=== PATIENT | male | born 1970 | race Two or more races ===

== ENCOUNTER 2024-01-13 11:17 | Emergency (ER) | payer MEDICAID, SELFPAY ==
[2024-01-13 11:19] VITALS: BMI 47.3
[2024-01-13 11:23] VITALS: BP 174/85; PULSE 85; RESP 19; TEMP 36.8; O2SAT 98
--- NOTE | 2024-01-13 11:49 | XR_ITS ---
Examination: Duplex scan of the lower extremity, unilateral right complete Date and time of exam: 24 1221 hrs. Indications: Right leg and calf pain and swelling and redness today, diagnosis atrial fibrillation Technique: Duplex scan of the extremity veins using B-mode/grayscale imaging and Doppler spectral analysis and color flow Attention is directed to internal echogenicity, compression and augmentation involving these veins, color flow assessment, spectral analysis Findings: Major deep venous structures in the extremity demonstrate normal course and caliber. There is no evidence of deep vein thrombosis. Normal color flow and spectral analysis Impression: Negative for DVT..
--- NOTE | 2024-01-13 11:51 | EDNOTE_ITS ---
ED Extremity Problem RME/HPI General Chief complaint: Extremity Problem,Nontraumatic Stated complaint: RIGHT CALF REDNESS AND PAIN, HX OF AFIB Time Seen by Provider: 01/13/24 11:28 Arrival date/time: 01/13/24 11:17 RME / HPI RME / HPI Narrative: 53-year-old male patient with significant history of A-fib, on Eliquis 5 mg twice daily, came in for evaluation regarding right lower leg swelling. Onset of symptoms since yesterday as worsening right lower leg swelling and redness and tenderness. Severity of symptoms moderate. Patient denies any fever denies any chest pain denies any headache. Denies any other complaints no medication was taken prior to arrival Related Data Home Medications ?Medication ?Instructions ?Recorded ?Confirmed amlodipine 10 mg tablet 10 mg PO QDAY 03/25/22 03/25/22 clonidine HCl 0.1 mg tablet 0.1 mg PO BID 03/25/22 03/25/22 lisinopril 40 mg tablet 40 mg PO QDAY 03/25/22 03/25/22 omeprazole 20 mg capsule,delayed 20 mg PO QDAY 03/25/22 03/25/22 release Previous Rx's ?Medication ?Instructions ?Recorded pantoprazole 40 mg tablet,delayed 40 mg PO QDAY #14 tabs 08/06/19 release (Protonix) diltiazem HCl 30 mg tablet 30 mg PO TID #90 tabs 03/26/22 diltiazem HCl 60 mg tablet 60 mg PO TID #30 tabs 04/06/22 diltiazem HCl 240 mg 240 mg PO QAM #30 caps 04/13/22 capsule,extended release 24 hr (Cardizem CD) metoprolol succinate 50 mg 50 mg PO BID #30 tabs 04/13/22 tablet,extended release 24 hr apixaban 5 mg tablet (Eliquis) 5 mg PO BID #60 tabs 06/22/22 doxycycline monohydrate 100 mg 100 mg PO BID #14 caps 01/13/24 capsule Allergies Allergy/AdvReac Type Severity Reaction Status Date / Time No Known Allergies Allergy Verified 01/13/24 11:21 Review of Systems Review of Systems Narrative Review of Systems: Review of system reviewed and within normal limits except mentioned in HPI ED Exam Narrative Physical exam: VITAL SIGNS: Reviewed. GENERAL APPEARANCE: Alert and interactive, follows commands, no acute distress, HEAD AND FACE: Non-traumatic. ENT: PERRL, pink conjunctivitis, eyelid no trauma, Mucous membrane moist. NECK: Supple, nontender, no nuchal rigidity. CHEST: No tenderness, no crepitus, no paradoxical movement, no retractions. LUNGS: Clear, well ventilated, symmetric, no rales, no wheezing, no ronchi, no stridor, good breath sounds bilaterally. HEART: Regular rate, regular rhythm, no murmur, no gallops. ABDOMEN: Soft, positive bowel sounds, nondistended, no guarding, nontender, no rebound, no masses, RECTAL: Deferred. GENITAL: Deferred. NEUROLOGICAL: Gross motor function intact sensory function intact, Appropriate for age. MUSCULOSKELETAL: low back nontender, full range of motion. EXTREMITIES: Right lower leg swelling, tenderness, full range of motion. No skin breakdown noted SKIN: Color pink, dry, no rash, no lacerations, no abrasions, no contusions. LYMPHATICS: Deferred. Course Quality Measures none Orders Category Date Time Status EKG (ED ONLY) *Do not use* NOW Care 01/13/24 11:53 Completed EKG (ED Only) Stat Exams 01/13/24 11:52 Draft US venous doppler LE RT Stat Exams 01/13/24 11:49 Taken BNP [B-Type Natriuretic Peptide] Stat Lab 01/13/24 12:09 Completed CBC [CBC] Stat Lab 01/13/24 12:09 Completed CMP [Comprehensive Metabolic Panel] Stat Lab 01/13/24 12:09 Completed PT [Prothrombin Time with INR] Stat Lab 01/13/24 12:09 Completed PTT [Partial Thromboplastin Time] Stat Lab 01/13/24 12:09 Completed Troponin I Stat Lab 01/13/24 12:09 Completed Doxycycline [Vibramycin] Med 01/13/24 13:10 Discontinued 100 mg PO X1 ONE Vital Signs Vital signs: Vital Signs Temperature 98.2 F 01/13/24 11:23 Pulse Rate 85 01/13/24 11:23 Respiratory Rate 19 01/13/24 11:23 Blood Pressure 174/85 H 01/13/24 11:23 Pulse Oximetry (%) 98 01/13/24 11:23 Oxygen Delivery Method Room Air 01/13/24 11:23 Extremity Problem MDM Narrative MDM Narrative:: Laboratory couple back unremarkable. Ultrasound of the lower extremities negat johnny for DVT. Patient is having cellulitis, severity mild. Patient will be given doxycycline in the ED. Patient stable for discharge Patient data External records reviewed:: None Clinical information provided by:: none Social determinants that could affect healthcare access:: none Patient has the following chronic illnesses:: Chronic A-fib, hypertension How is presenting disease/condition affected by chronic disease/condition?: exacerbated by Evaluation data The following diagnostics were reviewed and interpreted by me:: lab results and radiology exam(s) Lab and/or radiology exams considered but not ordered:: None Interpretation Summary: Laboratory all came back unremarkable no leukocytosis ultrasound is negative for DVT Medications / Prescriptions Medications or Prescriptions considered but not ordered:: None Medication administrations:: Medication Administration History Discontinued Medications Doxycycline Hyclate (Doxycycline 100 Mg Tablet) 100 mg PO X1 ONE Stop: 01/13/24 13:11 Last Admin: 01/13/24 13:16 Dose: 100 mg Documented By: ERIBERTO Doxycycline Consultations Consultation(s) initiated? (list below): No Diagnosis Extremity Problem Differential Diagnosis: cellulitis, superficial thrombophlebitis and deep vein thrombosis of lower extremity Most likely diagnosis given after review of the tests above:: Cellulitis lower leg Admission Indicated Admission indicated?: not indicated Explain why admission is indicated or not indicated:: Stable for discharge Admission Request Was there a request for admission?: No Disposition Plan Disposition Plan: Discharge Discharge Attestation Discharge Attestation: The patient was given an opportunity to ask questions and understood the discharge instructions. Discharge instructions specifically effects, indications for sooner follow up or return to the emergency department, and the expected course of current diagnosis. Patient condition: Stable Discharge Plan Plan Patient Disposition: HOME (Self Care) Disposition Comment: stable Prescriptions/Referrals Prescriptions/Med Rec: New doxycycline monohydrate 100 mg capsule 100 mg PO BID Qty: 14 0RF No Action Eliquis 5 mg tablet 5 mg PO BID Qty: 60 4RF pantoprazole [Protonix] 40 mg tablet,delayed release (DR/EC) 40 mg PO QDAY Qty: 14 0RF diltiazem HCl 60 mg tablet 60 mg PO TID Qty: 30 1RF diltiazem HCl [Cardizem CD] 240 mg capsule,extended release 24hr 240 mg PO QAM Qty: 30 0RF metoprolol succinate 50 mg tablet extended release 24 hr 50 mg PO BID Qty: 30 1RF clonidine HCl 0.1 mg Tablet 0.1 mg PO BID amlodipine 10 mg Tablet 10 mg PO QDAY omeprazole 20 mg Capsule,Delayed Release(Dr/Ec) 20 mg PO QDAY lisinopril 40 mg Tablet 40 mg PO QDAY diltiazem HCl 30 mg tablet 30 mg PO TID Qty: 90 2RF Referrals: Clinton VELASQUEZ)Chely FNP [Primary Care Provider] - In 1 week Problem List Clinical Impression: Cellulitis Patient/Caregiver Discharge Instructions Discharge Activity: activity as tolerated Education Materials: ED Cellulitis Additional Instructions: Thank you for the opportunity for serving you today. You are stable for discharged . You are advised to: Follow-up with your PCP in 1 to 2 days Return to ED for worsening of symptoms Increase oral fluids Take medication as prescribed Elevate legs as needed Print Language: Slovenian Stand Alone Forms: Judi Award Info., Patient Portal Info Letter ONOFRE/WALT Supervising Physician EARL Supervising Physician: MD Summer
--- NOTE | 2024-01-13 11:52 | EKG_ITS ---
[facility] Test Date: 2024-01-13 Pat Name: SAMEERA DURAN Department: Room: - Gender: Male [employer]: : 1970 Requested By: Cecilia Fontenot Order Number: [id number] Reading MD: Cecilia Fontenot Measurements Intervals [place] Rate: 86 P: DE: QRS: 53 QRSD: 100 T: 7 QT: 388 QTc: 466 Interpretive Statements ATRIAL FIBRILLATION NONSPECIFIC T-WAVE ABNORMALITY ABNORMAL RHYTHM ECG Compared to ECG 10/22/2022 09:47:56 Atrial flutter no longer present T-wave abnormality still present /store/S0/[id number].pdf
[2024-01-13 12:15] LABS: Basophils % (Auto) 0 % (0-2.5); Eosinophils # (Auto) 0.1 Thou/mm3 (0.0-0.5); Eosinophils % (Auto) 1 % (0-10); Hematocrit 44.9 % (41.0-53.0); Immature Granulocytes % (Auto) 0 % (0-0); Immature Granulocytes Auto 0.03 Thou/mm3 (0.00-0.00); Lymphocytes # (Auto) 0.7 Thou/mm3 (1.0-4.8); Lymphocytes % (Auto) 8 % (10-50); Mean Corpuscular HGB Conc 33.4 g/dl (31.0-37.0); Mean Corpuscular Hemoglobin 29.1 pg (25.0-35.0); Mean Corpuscular Volume 87 fL (80-100); Monocytes # (Auto) 0.5 Thou/mm3 (0.0-0.8); Monocytes % (Auto) 6 % (0-12); Neutrophils # (Auto) 7.7 Thou/mm3 (1.8-7.7); Neutrophils % (Auto) 85 % (37-80); Nucleated Red Blood Cell % 0 /100 WBC (0); Platelet Count 168 Thou/mm3 (140-440); RDW Standard Deviation 43.6 fL (35.1-43.9); Red Blood Count 5.16 Miln/mm3 (4.50-5.90)
[2024-01-13 12:30] LABS: INR 1.1 (0.9-1.3); Partial Thromboplastin Time 27.5 Seconds (22.0-36.0); Prothrombin Time 11.6 Seconds (9.0-12.2)
[2024-01-13 12:36] LABS: Alanine Aminotransferase 12 U/L (10-49); Albumin, Serum 4.1 gm/dL (3.5-5.0); Albumin/Globulin Ratio 1.4 (1.2-2.2); Alkaline Phosphatase 69 U/L (46-116); Anion Gap 6 (7-16); Aspartate Amino Transferase 19 U/L (0-34); BUN/Creatinine Ratio 14 Ratio (12-20); Bilirubin,Total 0.8 mg/dL (0.3-1.2); Blood Urea Nitrogen 10 mg/dL (9-23); Calcium 9.1 mg/dL (8.3-10.6); Calcium (Corrected) 9.1 mg/dL (8.5-10.1); Carbon Dioxide 22.8 mMol/L (20.0-31.0); Chloride 110 mMol/L (98-107); Creatinine (Component) 0.7 mg/dL (0.6-1.3); Globulin 2.9 gm/dL (2.3-3.5); Glucose 118 mg/dL (74-106); Osmolality,Calculated 277 (275-295); Potassium 3.9 mMol/L (3.4-5.1); Sodium 139 mMol/L (136-145); Troponin I < 0.002 ng/mL (0.0-0.045); eGFR > 60 See Note
[2024-01-13 12:51] LABS: B-Type Natriuretic Peptide 289 pg/mL (0-100)
[2024-01-13] MEDS: DOXYCYCLINE 100 MG TABLET PO (13:16)
== END 2024-01-13 13:24 | disposition home or self-care (01) ==
PROVIDERS: Nurse Practitioner Family; Emergency Provider Emergency Medicine; PCP Nurse Practitioner Primary Care
DX: L03.115 Cellulitis of right lower limb (principal); I48.20 Chronic atrial fibrillation, unspecified; I10 Essential (primary) hypertension; Z79.01 Long term (current) use of anticoagulants
CPT/HCPCS: 36415; 80053; 83880; 84484; 85025; 85610; 85730; 93005; 93971; 99284; A9270

== ENCOUNTER → 2024-08-14 | Outpatient (CLI) | payer MEDICAID, SELFPAY ==
--- NOTE | 2024-08-14 16:26 | XR_ITS ---
Examination: Foot, left, 3 views Technique: AP, oblique, lateral views foot, 3 views Date and time of exam: August 14, 2024 1634 hours INDICATIONS: Left foot pain beginning 4 months ago. FINDINGS: Prominent osteopenia. 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
== END | disposition home or self-care (01) ==
PROVIDERS: PCP Nurse Practitioner Primary Care; Referring Provider Nurse Practitioner Primary Care; Visit Provider Nurse Practitioner Primary Care
DX: M19.072 Primary osteoarthritis, left ankle and foot (principal); M77.32 Calcaneal spur, left foot
CPT/HCPCS: 73630